=== PATIENT | female | born 1960 | race Caucasian/White ===

== ENCOUNTER → 2016-09-16 | Outpatient (CLI) | payer OTHER ==
[~2016-09-16] VITALS: Ht 168.9 cm; Wt 122.5 kg
[~2016-09-16] MED LIST: ASPI325T6 PO; ASPIRIN 81M81 MG/TA2 PO; CALCIUM/MAGNESI1 T17 PO; CARDI-OMEGA1000 MG PO; CELEBREX 200MG200 MG PO; CO Q-1010 M1 PO; COREG12.5 MG PO; COZAAR 25MG25 MG/TAB PO; FISH OIL1000 MG PO; FOLIC ACID 40400 MCG PO; GLUCOPHAGE500 MG/TAB PO; HYZAAR 25 MG-101 TAB PO; IRON325 MG PO; K-DUR 10 MEQ T10 MEQ PO; LIPITOR20 MG PO; MOBIC 7.5MG7.5 MG PO; MULTIPLE VITAMI1 TA5 PO; NAPROSYN500 MG PO; NATURAL POTASS595 MG PO; NORCO 325 MG-51 TAB PO; NORCO 325 MG-7.1 TAB PO; NORVASC 10MG10 MG PO; NORVASC 5MG5 MG/TAB PO; POTASSIUM PO; SENOKOT S 50 MG1 TAB PO; VITAMIN C500 MG PO
[2016-09-16 09:14] VITALS: BP 125/64; PULSE 66
== END ==
LOC: LIGHT 09:00
DX: E11.9 Type 2 diabetes mellitus without complications (principal); I10 Essential (primary) hypertension; E88.81 Metabolic syndrome and other insulin resistance; E66.01 Morbid (severe) obesity due to excess calories; Z68.41 Body mass index [BMI] 40.0-44.9, adult

== ENCOUNTER → 2016-09-29 | Outpatient (CLI) | payer OTHER | LOC: LIGHT 15:00 | DX: Z02.89 Encounter for other administrative examinations (principal) ==

== ENCOUNTER → 2016-10-13 | Outpatient (CLI) | payer OTHER | LOC: LIGHT 10:51 | DX: Z02.89 Encounter for other administrative examinations (principal) ==

== ENCOUNTER → 2016-10-15 | Outpatient (CLI) | payer OTHER ==
[~2016-10-15] VITALS: Ht 168.9 cm; Wt 114.1 kg
[2016-10-15 10:56] VITALS: BP 132/63; PULSE 61
== END ==
LOC: LIGHT 10:50
DX: E11.9 Type 2 diabetes mellitus without complications (principal); I10 Essential (primary) hypertension; E88.81 Metabolic syndrome and other insulin resistance; E66.01 Morbid (severe) obesity due to excess calories; Z68.41 Body mass index [BMI] 40.0-44.9, adult; Z71.3 Dietary counseling and surveillance

== ENCOUNTER → 2016-10-20 | Outpatient (CLI) | payer OTHER | LOC: MC.RAD 08:53 | DX: Z12.31 Encounter for screening mammogram for malignant neoplasm of breast (principal); N63 Unspecified lump in breast ==

== ENCOUNTER → 2016-10-26 | Outpatient (CLI) | payer OTHER | LOC: MC.RAD 09:23 | DX: N63 Unspecified lump in breast (principal); N60.01 Solitary cyst of right breast ==

== ENCOUNTER → 2016-11-19 | Outpatient (CLI) | payer OTHER ==
[~2016-11-19] VITALS: Ht 168.9 cm; Wt 107.7 kg
[2016-11-19 11:58] VITALS: BP 131/85; PULSE 62
== END ==
LOC: LIGHT
DX: E11.9 Type 2 diabetes mellitus without complications (principal); I10 Essential (primary) hypertension; E88.81 Metabolic syndrome and other insulin resistance; E66.9 Obesity, unspecified; Z68.37 Body mass index [BMI] 37.0-37.9, adult; Z71.3 Dietary counseling and surveillance

== ENCOUNTER → 2017-01-07 | Outpatient (CLI) | payer OTHER ==
[~2017-01-07] VITALS: Ht 168.9 cm; Wt 107.7 kg
[2017-01-07 16:05] VITALS: BP 140/78; PULSE 68
== END ==
LOC: LIGHT 15:50
DX: E11.9 Type 2 diabetes mellitus without complications (principal); I10 Essential (primary) hypertension; E88.81 Metabolic syndrome and other insulin resistance; E66.01 Morbid (severe) obesity due to excess calories; Z68.37 Body mass index [BMI] 37.0-37.9, adult; Z96.651 Presence of right artificial knee joint

== ENCOUNTER → 2017-02-04 | Outpatient (CLI) | payer OTHER ==
[~2017-02-04] VITALS: Ht 168.9 cm; Wt 108.2 kg
[2017-02-04 08:20] VITALS: BP 140/80; PULSE 64
== END ==
LOC: LIGHT 02-03 09:10
DX: E11.9 Type 2 diabetes mellitus without complications (principal); I10 Essential (primary) hypertension; E88.81 Metabolic syndrome and other insulin resistance; E66.01 Morbid (severe) obesity due to excess calories; Z68.37 Body mass index [BMI] 37.0-37.9, adult; Z71.3 Dietary counseling and surveillance

== ENCOUNTER → 2017-02-24 | Outpatient (CLI) | payer OTHER | LOC: BHSO 09:53 | DX: Z01.818 Encounter for other preprocedural examination (principal) ==

== ENCOUNTER → 2017-03-04 | Outpatient (CLI) | payer OTHER ==
[~2017-03-04] VITALS: Ht 168.9 cm; Wt 114.3 kg
[2017-03-04 14:25] VITALS: BP 146/90; PULSE 64
== END ==
LOC: LIGHT 10:59
DX: E11.9 Type 2 diabetes mellitus without complications (principal); I10 Essential (primary) hypertension; E88.81 Metabolic syndrome and other insulin resistance; E66.01 Morbid (severe) obesity due to excess calories; Z68.41 Body mass index [BMI] 40.0-44.9, adult; Z71.3 Dietary counseling and surveillance

== ENCOUNTER → 2017-03-29 | Outpatient (CLI) | payer OTHER ==
[~2017-03-29] VITALS: Ht 168.9 cm; Wt 113.9 kg
[2017-03-29 14:23] VITALS: BP 156/92; PULSE 72
== END ==
LOC: LIGHT 08:20
DX: E11.9 Type 2 diabetes mellitus without complications (principal); I10 Essential (primary) hypertension; E88.81 Metabolic syndrome and other insulin resistance; E66.01 Morbid (severe) obesity due to excess calories; Z68.39 Body mass index [BMI] 39.0-39.9, adult; Z71.3 Dietary counseling and surveillance

== ENCOUNTER 2017-04-06 13:46 | Inpatient (IN) | payer OTHER ==
[~2017-04-06] VITALS: Ht 170.2 cm; Wt 112.5 kg
[2017-04-19] MEDS ORDERED: GLUCOPHAGE500 MG/TAB PO (15:49)
[2017-05-05] VITALS (12 sets, daily range): BP systolic 144–164; BP diastolic 68–95; PULSE 57–82; TEMP 97.7–98.9
[2017-05-05] MEDS ORDERED: COZAAR100 MG PO (09:30)
[2017-05-06 02:05] VITALS: BP 145/78; PULSE 76; TEMP 98.8
[2017-05-06 06:01] VITALS: BP 154/83; PULSE 66; TEMP 98.6
[2017-05-06 09:39] VITALS: BP 166/87; PULSE 66; TEMP 98.3
== END 2017-05-06 13:30 | disposition home or self-care (01) | DRG 621 ==
LOC: INPTSU 05-05 08:21 → EDSTATUS 05-05 10:30 → SDCO 05-05 10:30 → SURG 05-05 10:30
PROVIDERS: Surgery
PROC: 0DB64Z3 Excision of Stomach, Percutaneous Endoscopic Approach, Vertical (ICD-10-PCS; principal; 2017-05-05 10:30)
DX: E66.01 Morbid (severe) obesity due to excess calories (principal); I10 Essential (primary) hypertension; E11.9 Type 2 diabetes mellitus without complications; Z68.39 Body mass index [BMI] 39.0-39.9, adult; Z96.651 Presence of right artificial knee joint
CPT/HCPCS: A9284; J0690; J1100; J1170; J2175; J2270; J2405; J2704; J2710; J3010; J7030; J7120

== ENCOUNTER → 2017-04-19 | Outpatient (CLI) | payer OTHER | LOC: LIGHT 08:26 | DX: Z01.818 Encounter for other preprocedural examination (principal); E66.01 Morbid (severe) obesity due to excess calories; E11.9 Type 2 diabetes mellitus without complications; I10 Essential (primary) hypertension ==

== ENCOUNTER → 2017-06-21 | Outpatient (CLI) | payer OTHER ==
[~2017-06-21] VITALS: Ht 170.2 cm; Wt 97.7 kg
[~2017-06-21] MED LIST changes: +COZAAR100 MG PO
[2017-06-21 15:43] VITALS: BP 144/80; PULSE 60
== END ==
LOC: LIGHT 15:11
DX: E11.9 Type 2 diabetes mellitus without complications (principal); I10 Essential (primary) hypertension; E88.81 Metabolic syndrome and other insulin resistance; E66.01 Morbid (severe) obesity due to excess calories; Z68.33 Body mass index [BMI] 33.0-33.9, adult; Z71.3 Dietary counseling and surveillance

== ENCOUNTER → 2017-07-19 | Outpatient (CLI) | payer OTHER ==
[~2017-07-19] VITALS: Ht 170.2 cm; Wt 92.3 kg
[2017-07-19 15:51] VITALS: BP 110/70; PULSE 60
== END ==
LOC: LIGHT 09:42
DX: Z01.89 Encounter for other specified special examinations (principal)

== ENCOUNTER 2022-07-13 09:45 | Outpatient (RCR) | payer OTHER ==
[~2022-07-13 09:45] MED LIST changes: +DIOVAN HCT 25 M1 TA1 PO; +ROXICODONE 55 MG/TAB PO; +SENNA-S 50 MG-81 TAB PO; +ULTRAM 50MG TAB50 MG PO; +ZYLOPRIM 100MG100 MG PO
== END 2022-07-13 15:00 | disposition home or self-care (01) ==
LOC: PT.GENESIS 09:45
DX: Z96.652 Presence of left artificial knee joint (principal)

== ENCOUNTER 2023-12-14 09:15 | Outpatient (RCR) | payer OTHER | END 2023-12-15 | disposition home or self-care (01) | LOC: PT.GENESIS | DX: S32.69 Other specified fracture of ischium (principal); X58.XXXD Exposure to other specified factors, subsequent encounter ==

== ENCOUNTER 2023-12-27 10:15 | Outpatient (RCR) | payer OTHER | END 2024-01-15 | disposition home or self-care (01) | LOC: PT.GENESIS | DX: S32.69 Other specified fracture of ischium (principal); X58.XXXD Exposure to other specified factors, subsequent encounter ==